=== PATIENT | male | born 1970 | race Caucasian/White ===

== ENCOUNTER → 2020-01-02 | Outpatient (CLI) | payer OTHER ==
--- NOTE | 2020-01-02 10:31 | 2DMMODE ---
[facility] [place] [address] 2 D/M-MODE ECHOCARDIOGRAM Name: ERIC MASON Room #: REG [facility]#: [id number] Admission: 01/02/20 Attend Phys: Jordan Moreno MD Discharge: Date of : 66 Report #: [id number] THIS REPORT FOR: cc: Jordan Moreno MD, Jin S. MD Park, Jin S. MD ~ APPROVED REPORT Study performed: 01/02/2020 09:44:16 EXAM: Comprehensive 2D, Doppler, and color-flow Echocardiogram Patient Location: Out-Patient Status: routine BSA: 2.44 HR: 57 bpm Rhythm: NSR Other Information Study Quality: Adequate Technically limited study due to obesity and lung interference.. Indications Short of breath, chest discomfort. 2D Dimensions RVDd: 33.00 mm IVSd: 12.56 (7-11mm) LVOT Diam: 22.22 (18-24mm) LVDd: 46.07 mm PWd: 11.30 (7-11mm) Ascending Ao: 34.94 (22-36mm) LVDs: 31.99 (25-40mm) Aortic Root: 37.86 mm Volumes Left Atrial Volume (Systole) Single Plane 4CH: 48.37 mL Aortic Valve AoV Peak Alan.: 1.38 m/s AO Peak Gr.: 7.60 mmHg LVOT Max P.53 mmHg LVOT Max V: 0.94 m/s CROW Vmax: 2.64 cm2 [facility] [address] [place] [address] 2 D/M-MODE ECHOCARDIOGRAM Name: ERIC MASON Room #: REG [facility]#: [id number] Admission: 01/02/20 Attend Phys: Jordan Moreno MD Discharge: Date of : 66 Report #: [id number] Mitral Valve E/A Ratio: 1.2 MV Decel. Time: 217.17 ms MV E Max Alan.: 0.86 m/s MV A Alan.: 0.69 m/s MV PHT: 62.98 ms IVRT: 100.35 ms Pulmonary Valve PV Peak Alan.: 1.08 m/s PV Peak Gr.: 4.65 mmHg Pulmonary Vein P Vein S: 0.38 m/s P Vein D: 0.32 m/s P Vein S/D Ratio: 1.19 Tricuspid Valve TR Peak Alan.: 2.33 m/s RAP Estimate: 5.00 mmHg TR Peak Gr.: 22.00 mmHg PA Pressure: 27.00 mmHg Left Ventricle The left ventricle is normal size. There is normal LV segmental wall motion. Left ventricular systolic function is normal. LVEF is 55-60%. The left ventricular diastolic function is normal. Right Ventricle The right ventricle is normal size. The right ventricular systolic function is normal. Atria The left atrium size is normal. The right atrium size is normal. Aortic Valve The aortic valve is normal in structure. No aortic regurgitation is present. There is no aortic valvular stenosis. Mitral Valve The mitral valve is normal in structure. There is no mitral valve regurgitation noted. No evidence of mitral valve stenosis. Tricuspid Valve The tricuspid valve is normal in structure. Trace tricuspid regurgitation. Estimated PAP is 25-30mmHg. [facility] [place] [address] 2 D/M-MODE ECHOCARDIOGRAM Name: ERIC MASON Room #: REG [facility]#: [id number] Admission: 01/02/20 Attend Phys: Jordan Moreno MD Discharge: Date of : 66 Report #: [id number] Pulmonic Valve Pulmonic valve is not well visualized. Great Vessels Aortic root is borderline dilated. The ascending aorta is normal in size. IVC is normal in size and collapses >50% with inspiration. Pericardium There is no pericardial effusion. <Conclusion> The left ventricle is normal size. Left ventricular systolic function is normal. The right ventricle is normal size. The left atrium size is normal. The aortic valve is normal in structure. There is no mitral valve regurgitation noted. Trace tricuspid regurgitation. Estimated PAP is 25-30mmHg. <ELECTRONICALLY SIGNED> By: Jordan Moreno MD 01/02/20 1031 1031 1031 Jordan oMreno MD /INF
--- NOTE | 2020-01-02 15:23 | TST ---
[facility] [place] [address] TREADMILL STRESS TEST Name: ERIC MASON Room #: REG [facility] Burgess.#: [id number] Admission: 01/02/20 Attend Phys: Jordan Moreno MD Discharge: Date of : 66 Report #: [id number] THIS REPORT FOR: cc: Jordan Moreno MD, Jin S. MD Park, Jin S. MD ~ THIS REPORT FOR: //name// APPROVED REPORT Patient Location: Out-Patient Room #: Stress Nurse: Tanisha Moffett RN The patient exercised according to the MONICO protocol for 7 mins 40 sec; achieving a work level of 10.4 METS. The resting heart rate of 78 bpm mark to a maximum heart rate of 148 bpm. This value represent 87% of the maximal, age-predicted heart rate. The resting blood pressure of 120/80 mmHg, mark to a maximum blood pressure of 133/84 mmHg. The exercise test was stopped due to Fatigue. Conclusion 1. Clinical response, nonischemic. 2. Stress ECG response, nonischemic. 3. Exercise capacity, below average. <ELECTRONICALLY SIGNED> By: Jordan Moreno MD 01/02/20 1523 1523 1523 Jordan Moreno MD /INF
== END ==
LOC: CV 09:03
PROVIDERS: ATTEND Internal Medicine Cardiovascular Disease
DX: R06.00 Dyspnea, unspecified (principal); R06.02 Shortness of breath; R07.89 Other chest pain

== ENCOUNTER → 2020-01-02 | Outpatient (CLI) | payer OTHER | LOC: CAT 11:35 | PROVIDERS: ATTEND Internal Medicine Cardiovascular Disease | DX: Z13.6 Encounter for screening for cardiovascular disorders (principal); I25.10 Atherosclerotic heart disease of native coronary artery without angina pectoris; E78.00 Pure hypercholesterolemia, unspecified ==